=== PATIENT | female | born 1945 | race African-American/Black ===

== ENCOUNTER 2019-11-05 08:48 | Inpatient (IN) | payer MEDICARE, MEDICAID ==
[~2019-11-05] VITALS: Ht 162.6 cm; Wt 60.9 kg
[2019-11-05 10:21] LABS: BASOPHILS % 0.9 % (0.0-2.0); HEMATOCRIT. 33.3 % (36.0-48.0); HEMOGLOBIN. 10.9 g/dL (12.0-16.0); LYMPHOCYTES % 12.5 % (20.0-50.0); MEAN CORPUSCULAR HEMOGLOBIN 28.4 pg (28.0-32.0); MEAN CORPUSCULAR VOLUME 86.7 fL (81.0-99.0); MEAN PLATELET VOLUME 7.9 fl (7.4-10.4); MONOCYTES % 3.5 % (2.0-8.0); NEUTROPHILS % 83.1 % (40.0-76.0); PLATELET 274 x1000/uL (130-400); RED BLOOD CELL COUNT 3.84 mill/uL (4.2-5.4); RED CELL DISTRIBUTION WIDTH 16.3 % (11.6-14.6)
[2019-11-05 10:29] LABS: CHLORIDE 108 mEq/L (98-107)
[2019-11-05] MEDS ORDERED: PIPERACILLIN/TAZ 3.375G PREMIX 50 ML IV ONE (10:30)
[2019-11-05] MEDS ORDERED: VANCOMYCIN 1 G PREMIX 200 ML IV ONE (10:30)
[2019-11-05 10:38] LABS: CLARITY URINE CLOUDY (CLEAR); COLOR URINE YELLOW (YELLOW); KETONES URINE NEGATIVE (NEGATIVE); LEUKOCYTE ESTERASE URINE NEGATIVE (NEGATIVE); NITRITE URINE NEGATIVE (NEGATIVE); OCCULT BLOOD URINE 1+ (NEGATIVE); PROTEIN URINE 3+ (NEGATIVE)
[2019-11-05 10:54] LABS: BG BASE EXCESS -0.4 mmol/L (-2.0-2.0); BG CARBOXYHEMOGLOBIN 0.1 % (0.5-1.5); BG DEOXYHEMOGLOBIN 2.3 % (0.0-5.0); BG FRACTION INSPIRED OXYGEN 100; BG HCO3 ACT 23.3 mmol/L (22.0-26.0); BG METHEMOGLOBIN 0.1 % (0.0-1.5); BG OXYGEN SATURATION 97.7 % (92.0-98.5); BG OXYHEMOGLOBIN 97.5 % (94.0-97.0); BG PCO2 34.4 mmHg (35.0-45.0); BG PH 7.448 (7.350-7.450); BG PO2 107.5 mmHg (75.0-100.0); BG SAMPLE SITE RIGHT RADIAL; BG TOTAL HEMOGLOBIN 10.2 g/dL (12.0-18.0); BG VENT MODE MASK - NRB
[2019-11-05 11:15] LABS: PROTHROMBIN TIME 10.6 sec (9.6-11.0)
[2019-11-05] MEDS ORDERED: AZITHROMYCIN 500 MG TABLET PO SCH (16:00)
[2019-11-05] MEDS ORDERED: DEXAMETHASONE 10 MG/ML VIAL IV SCH ×2 (16:00)
[2019-11-05] MEDS ORDERED: CEFTRIAXONE 1 G PREMIX 50 ML IV SCH (17:00)
[2019-11-05] MEDS ORDERED: ALBUTEROL 6.7GM HFA INHALER ORI SCH (18:00)
[2019-11-05] MEDS ORDERED: ONDANSETRON HCL 4MG/2ML INJ IV PRN (22:45)
[2019-11-05] MEDS ORDERED: ACETAMINOPHEN 325MG TABLET PO PRN (22:45)
[2019-11-05] MEDS ORDERED: DIPHENHYDRAMINE 50MG/ML VIAL IV PRN (22:45)
[2019-11-05] MEDS ORDERED: GUAIFENESIN 200MG/10ML SUGAR FREE UDC PO PRN (22:45)
[2019-11-05] MEDS ORDERED: CLONIDINE 0.1MG TABLET PO PRN (22:45)
[2019-11-05 23:59] VITALS: BP 129/78
[2019-11-06 04:00] VITALS: BP 122/54
[2019-11-06] MEDS: ALBUTEROL 6.7GM HFA INHALER ORI SCH ×3 (05:02→17:50)
[2019-11-06] MEDS: SODIUM CHLORIDE 0.9% INJ 3ML FLUSH IVF SCH ×3 (05:03→20:35)
[2019-11-06] MEDS ORDERED: DEXAMETHASONE 4MG/ML 1ML VIAL IV SCH ×2 (06:00)
[2019-11-06 07:41] LABS: BASOPHILS % 0.2 % (0.0-2.0); HEMATOCRIT. 31.7 % (36.0-48.0); HEMOGLOBIN. 10.6 g/dL (12.0-16.0); LYMPHOCYTES % 8.3 % (20.0-50.0); MEAN CORPUSCULAR HEMOGLOBIN 28.7 pg (28.0-32.0); MEAN CORPUSCULAR VOLUME 86.1 fL (81.0-99.0); MEAN PLATELET VOLUME 7.9 fl (7.4-10.4); MONOCYTES % 2.3 % (2.0-8.0); NEUTROPHILS % 89.2 % (40.0-76.0); PLATELET 258 x1000/uL (130-400); RED BLOOD CELL COUNT 3.69 mill/uL (4.2-5.4); RED CELL DISTRIBUTION WIDTH 15.8 % (11.6-14.6)
[2019-11-06 08:00] VITALS: BP 158/75
[2019-11-06] MEDS: AZITHROMYCIN 250 MG TABLET PO SCH (09:23)
[2019-11-06] MEDS ORDERED: DEXAMETHASONE 10 MG/ML VIAL IV NR (11:30)
[2019-11-06 12:00] VITALS: BP 137/70
[2019-11-06] MEDS: ENOXAPARIN 60MG/0.6ML SYR SUBCUT SCH (12:21)
[2019-11-06] MEDS ORDERED: REMDESIVIR 200 MG in SODIUM CHLORIDE 0.9% 250 ML IV ONE (13:00)
[2019-11-06 16:00] VITALS: BP 103/69
[2019-11-06] MEDS: CEFTRIAXONE 1 G PREMIX 50 ML IV SCH (17:49)
[2019-11-06 20:00] VITALS: BP 138/44
[2019-11-07] VITALS: BP 135/57
[2019-11-07] MEDS: ALBUTEROL 6.7GM HFA INHALER ORI SCH ×5 (00:10→23:21)
[2019-11-07 04:00] VITALS: BP 129/56
[2019-11-07] MEDS: SODIUM CHLORIDE 0.9% INJ 3ML FLUSH IVF SCH ×3 (05:07→21:39)
[2019-11-07 07:41] LABS: CHLORIDE 108 mEq/L (98-107)
[2019-11-07 08:00] VITALS: BP 111/50
[2019-11-07] MEDS: AZITHROMYCIN 250 MG TABLET PO SCH (08:59)
[2019-11-07] MEDS: DEXAMETHASONE 10 MG/ML VIAL IV SCH (09:00)
[2019-11-07 12:00] VITALS: BP 104/50
[2019-11-07] MEDS: ENOXAPARIN 60MG/0.6ML SYR SUBCUT SCH (12:42)
[2019-11-07] MEDS: REMDESIVIR 100 MG in SODIUM CHLORIDE 0.9% 250 ML IV SCH (12:42)
[2019-11-07 16:00] VITALS: BP 112/71
[2019-11-07] MEDS: DEXT 5%/0.45% NACL 1000ML 1,000 ML IV SCH (16:32)
[2019-11-07] MEDS: CEFTRIAXONE 1 G PREMIX 50 ML IV SCH (16:32)
[2019-11-07 20:00] VITALS: BP 149/85
[2019-11-08] VITALS: BP 164/82
[2019-11-08 04:00] VITALS: BP 125/47
[2019-11-08] MEDS: SODIUM CHLORIDE 0.9% INJ 3ML FLUSH IVF SCH ×3 (05:29→22:44)
[2019-11-08] MEDS: ALBUTEROL 6.7GM HFA INHALER ORI SCH ×3 (05:29→17:01)
[2019-11-08 06:30] LABS: BASOPHILS % 0.9 % (0.0-2.0); HEMATOCRIT. 31.2 % (36.0-48.0); HEMOGLOBIN. 10.1 g/dL (12.0-16.0); LYMPHOCYTES % 10.1 % (20.0-50.0); MEAN CORPUSCULAR HEMOGLOBIN 28.1 pg (28.0-32.0); MEAN CORPUSCULAR VOLUME 86.7 fL (81.0-99.0); MONOCYTES % 4.8 % (2.0-8.0); NEUTROPHILS % 84.2 % (40.0-76.0); PLATELET 263 x1000/uL (130-400); RED BLOOD CELL COUNT 3.59 mill/uL (4.2-5.4); RED CELL DISTRIBUTION WIDTH 16.2 % (11.6-14.6)
[2019-11-08 06:56] LABS: CHLORIDE 111 mEq/L (98-107)
[2019-11-08 08:00] VITALS: BP 134/54
[2019-11-08] MEDS: AZITHROMYCIN 250 MG TABLET PO SCH (08:07)
[2019-11-08] MEDS: DEXAMETHASONE 10 MG/ML VIAL IV SCH (08:07)
[2019-11-08] MEDS: ACETAMINOPHEN 325MG TABLET PO PRN (08:08)
[2019-11-08 12:00] VITALS: BP 126/67
[2019-11-08] MEDS: DEXT 5%/0.45% NACL 1000ML 1,000 ML IV SCH (12:01)
[2019-11-08] MEDS: ENOXAPARIN 60MG/0.6ML SYR SUBCUT SCH (12:03)
[2019-11-08] MEDS: REMDESIVIR 100 MG in SODIUM CHLORIDE 0.9% 250 ML IV SCH (12:07)
[2019-11-08 16:00] VITALS: BP 128/74
[2019-11-08] MEDS: CEFTRIAXONE 1 G PREMIX 50 ML IV SCH (17:01)
[2019-11-08 20:49] VITALS: BP 143/68
[2019-11-09 00:25] VITALS: BP 145/54
[2019-11-09] MEDS: ALBUTEROL 6.7GM HFA INHALER ORI SCH ×4 (00:38→17:11)
[2019-11-09 04:00] VITALS: BP 123/73
[2019-11-09] MEDS: SODIUM CHLORIDE 0.9% INJ 3ML FLUSH IVF SCH ×3 (06:00→21:12)
[2019-11-09] MEDS: DEXT 5%/0.45% NACL 1000ML 1,000 ML IV SCH (06:45)
[2019-11-09 08:00] VITALS: BP 121/47
[2019-11-09 08:11] LABS: CHLORIDE 112 mEq/L (98-107)
[2019-11-09] MEDS: DEXAMETHASONE 10 MG/ML VIAL IV SCH (08:33)
[2019-11-09] MEDS: AZITHROMYCIN 250 MG TABLET PO SCH (08:58)
[2019-11-09] MEDS ORDERED: LIDOCAINE HCL 1% 20ML VIAL (Pyxis) INJ ONE (09:23)
[2019-11-09] MEDS: ENOXAPARIN 60MG/0.6ML SYR SUBCUT SCH (11:36)
[2019-11-09] MEDS: REMDESIVIR 100 MG in SODIUM CHLORIDE 0.9% 250 ML IV SCH ×2 (13:00→13:44)
[2019-11-09] MEDS: ACETAMINOPHEN 325MG TABLET PO PRN (13:43)
[2019-11-09 16:00] VITALS: BP 122/68
[2019-11-09] MEDS: CEFTRIAXONE 1 G PREMIX 50 ML IV SCH (16:19)
[2019-11-09 20:00] VITALS: BP 141/54
[2019-11-10] VITALS: BP 156/60
[2019-11-10] MEDS: ALBUTEROL 6.7GM HFA INHALER ORI SCH ×4 (00:07→17:00)
[2019-11-10 04:00] VITALS: BP 119/56
[2019-11-10] MEDS: SODIUM CHLORIDE 0.9% INJ 3ML FLUSH IVF SCH ×3 (05:02→21:07)
[2019-11-10] MEDS: DEXT 5%/0.45% NACL 1000ML 1,000 ML IV SCH (05:04)
[2019-11-10 07:34] LABS: CHLORIDE 112 mEq/L (98-107)
[2019-11-10 08:00] VITALS: BP 139/59
[2019-11-10] MEDS: DEXAMETHASONE 10 MG/ML VIAL IV SCH (08:57)
[2019-11-10] MEDS: ACETAMINOPHEN 325MG TABLET PO PRN (10:50)
[2019-11-10 12:00] VITALS: BP 136/73
[2019-11-10] MEDS: REMDESIVIR 100 MG in SODIUM CHLORIDE 0.9% 250 ML IV SCH (13:18)
[2019-11-10] MEDS: ENOXAPARIN 60MG/0.6ML SYR SUBCUT SCH (13:19)
[2019-11-10 13:28] LABS: BG CARBOXYHEMOGLOBIN 0.3 % (0.5-1.5); BG DEOXYHEMOGLOBIN 2.2 % (0.0-5.0); BG FRACTION INSPIRED OXYGEN 40; BG HCO3 ACT 22.3 mmol/L (22.0-26.0); BG METHEMOGLOBIN 0.1 % (0.0-1.5); BG OXYGEN SATURATION 97.8 % (92.0-98.5); BG OXYHEMOGLOBIN 97.4 % (94.0-97.0); BG PH 7.409 (7.350-7.450); BG PO2 105.6 mmHg (75.0-100.0); BG SAMPLE SITE RIGHT RADIAL; BG TOTAL HEMOGLOBIN 10.8 g/dL (12.0-18.0); BG VENT MODE NASAL CANNULA
[2019-11-10 16:00] VITALS: BP 148/67
[2019-11-10] MEDS: CEFTRIAXONE 1 G PREMIX 50 ML IV SCH (16:59)
[2019-11-10 21:36] VITALS: BP 160/68
[2019-11-11] VITALS: BP 131/57
[2019-11-11] MEDS: ALBUTEROL 6.7GM HFA INHALER ORI SCH ×4 (00:11→17:03)
[2019-11-11] MEDS: DEXT 5%/0.45% NACL 1000ML 1,000 ML IV SCH ×2 (00:12→21:30)
[2019-11-11 04:00] VITALS: BP 157/58
[2019-11-11] MEDS: SODIUM CHLORIDE 0.9% INJ 3ML FLUSH IVF SCH ×3 (05:08→21:31)
[2019-11-11 06:52] LABS: CHLORIDE 113 mEq/L (98-107)
[2019-11-11 08:00] VITALS: BP 149/69
[2019-11-11] MEDS: DEXAMETHASONE 10 MG/ML VIAL IV SCH (08:31)
[2019-11-11 12:00] VITALS: BP 160/67
[2019-11-11] MEDS: ENOXAPARIN 60MG/0.6ML SYR SUBCUT SCH (12:30)
[2019-11-11 16:00] VITALS: BP 139/60
[2019-11-11] MEDS: CEFTRIAXONE 1 G PREMIX 50 ML IV SCH (17:02)
[2019-11-11 20:00] VITALS: BP 138/47
[2019-11-12] VITALS (10 sets, daily range): BP systolic 120–159; BP diastolic 49–77
[2019-11-12] MEDS: ALBUTEROL 6.7GM HFA INHALER ORI SCH ×4 (04:16→17:51)
[2019-11-12] MEDS: SODIUM CHLORIDE 0.9% INJ 3ML FLUSH IVF SCH ×2 (05:38→17:52)
[2019-11-12] MEDS: ENOXAPARIN 60MG/0.6ML SYR SUBCUT SCH (09:23)
[2019-11-12] MEDS: DEXAMETHASONE 10 MG/ML VIAL IV SCH (10:19)
[2019-11-12] MEDS: DEXT 5%/0.45% NACL 1000ML 1,000 ML IV SCH (17:50)
[2019-11-13] VITALS: BP 172/77
[2019-11-13] MEDS: DEXT 5%/0.45% NACL 1000ML 1,000 ML IV SCH (00:38)
[2019-11-13 04:00] VITALS: BP 154/70
[2019-11-13] MEDS: ALBUTEROL 6.7GM HFA INHALER ORI SCH ×4 (06:00→23:02)
[2019-11-13] MEDS: SODIUM CHLORIDE 0.9% INJ 3ML FLUSH IVF SCH ×3 (06:00→21:00)
[2019-11-13 08:00] VITALS: BP 141/62
[2019-11-13] MEDS: ENOXAPARIN 60MG/0.6ML SYR SUBCUT SCH (09:13)
[2019-11-13] MEDS: DEXAMETHASONE 4MG TABLET PO SCH (09:13)
[2019-11-13 10:33] LABS: BG BASE EXCESS 0.5 mmol/L (-2.0-2.0); BG CARBOXYHEMOGLOBIN 0.3 % (0.5-1.5); BG DEOXYHEMOGLOBIN 13.3 % (0.0-5.0); BG FRACTION INSPIRED OXYGEN 100; BG METHEMOGLOBIN 0.1 % (0.0-1.5); BG OXYGEN SATURATION 86.6 % (92.0-98.5); BG OXYHEMOGLOBIN 86.3 % (94.0-97.0); BG PCO2 45.1 mmHg (35.0-45.0); BG PH 7.378 (7.350-7.450); BG PO2 52.8 mmHg (75.0-100.0); BG SAMPLE SITE RIGHT BRACHIAL; BG VENT MODE MASK - NRB
[2019-11-13 12:00] VITALS: BP 166/73
[2019-11-13 16:00] VITALS: BP 122/53
[2019-11-13 20:00] VITALS: BP 157/61
[2019-11-14] VITALS: BP 148/70
[2019-11-14 04:00] VITALS: BP 158/74
[2019-11-14] MEDS: DEXT 5%/0.45% NACL 1000ML 1,000 ML IV SCH (06:05)
[2019-11-14] MEDS: ALBUTEROL 6.7GM HFA INHALER ORI SCH ×3 (06:16→17:26)
[2019-11-14] MEDS: SODIUM CHLORIDE 0.9% INJ 3ML FLUSH IVF SCH ×3 (06:16→20:25)
[2019-11-14 06:45] LABS: CHLORIDE 112 mEq/L (98-107)
[2019-11-14 06:49] LABS: HEMATOCRIT. 31.7 % (36.0-48.0); HEMOGLOBIN. 10.5 g/dL (12.0-16.0); MEAN CORPUSCULAR HEMOGLOBIN 28.4 pg (28.0-32.0); MEAN CORPUSCULAR VOLUME 85.4 fL (81.0-99.0); MEAN PLATELET VOLUME 8.7 fl (7.4-10.4); PLATELET 164 x1000/uL (130-400); RED BLOOD CELL COUNT 3.71 mill/uL (4.2-5.4)
[2019-11-14 06:55] LABS: PHOSPHORUS 3.1 mg/dL (2.5-4.9)
[2019-11-14 08:00] VITALS: BP 136/53
[2019-11-14] MEDS: DEXAMETHASONE 4MG TABLET PO SCH (09:00)
[2019-11-14] MEDS: ENOXAPARIN 60MG/0.6ML SYR SUBCUT SCH ×2 (09:01→20:25)
[2019-11-14 12:00] VITALS: BP 142/50
[2019-11-14 12:58] LABS: PLATELET ESTIMATE NORMAL
[2019-11-14 16:00] VITALS: BP 140/64
[2019-11-14] MEDS: CEFEPIME 1,000 MG in DEXTROSE 5% WATER 50 ML IV SCH (17:25)
[2019-11-14] MEDS ORDERED: VANCOMYCIN 1250MG in DEXTROSE 5% WATER 250ML IV SCH (19:00)
[2019-11-14 20:00] VITALS: BP 142/57
[2019-11-14] MEDS: METRONIDAZOLE 500MG TABLET PO SCH (20:25)
[2019-11-15] VITALS: BP 126/74
[2019-11-15] MEDS: ALBUTEROL 6.7GM HFA INHALER ORI SCH ×4 (01:39→17:31)
[2019-11-15 04:00] VITALS: BP 164/64
[2019-11-15] MEDS: CEFEPIME 1,000 MG in DEXTROSE 5% WATER 50 ML IV SCH ×2 (06:12→17:30)
[2019-11-15] MEDS: SODIUM CHLORIDE 0.9% INJ 3ML FLUSH IVF SCH ×3 (06:15→21:24)
[2019-11-15 08:33] LABS: BG BASE EXCESS -8.5 mmol/L (-2.0-2.0); BG CARBOXYHEMOGLOBIN 0.4 % (0.5-1.5); BG DEOXYHEMOGLOBIN 3.5 % (0.0-5.0); BG HCO3 ACT 18.8 mmol/L (22.0-26.0); BG METHEMOGLOBIN 0.2 % (0.0-1.5); BG OXYGEN SATURATION 96.5 % (92.0-98.5); BG OXYHEMOGLOBIN 95.9 % (94.0-97.0); BG PCO2 46.1 mmHg (35.0-45.0); BG PH 7.229 (7.350-7.450); BG PO2 102.7 mmHg (75.0-100.0); BG SAMPLE SITE RIGHT BRACHIAL; BG TOTAL HEMOGLOBIN 11.7 g/dL (12.0-18.0); BG VENT MODE MASK - NRB
[2019-11-15 08:45] VITALS: BP 137/74
[2019-11-15] MEDS ORDERED: SODIUM BICARBONATE 8.4% 1 MEQ/ML 50ML SYR IV SCH (09:00)
[2019-11-15] MEDS: METRONIDAZOLE 500MG TABLET PO SCH ×2 (09:05→21:24)
[2019-11-15] MEDS: DEXAMETHASONE 4MG TABLET PO SCH (09:05)
[2019-11-15] MEDS: ENOXAPARIN 60MG/0.6ML SYR SUBCUT SCH (09:07)
[2019-11-15 10:05] LABS: BG BASE EXCESS 1.4 mmol/L (-2.0-2.0); BG CARBOXYHEMOGLOBIN 0.1 % (0.5-1.5); BG DEOXYHEMOGLOBIN 3.7 % (0.0-5.0); BG FRACTION INSPIRED OXYGEN 100; BG HCO3 ACT 27.1 mmol/L (22.0-26.0); BG METHEMOGLOBIN 0.3 % (0.0-1.5); BG OXYGEN SATURATION 96.3 % (92.0-98.5); BG OXYHEMOGLOBIN 95.9 % (94.0-97.0); BG PCO2 47.5 mmHg (35.0-45.0); BG PH 7.374 (7.350-7.450); BG PO2 89.4 mmHg (75.0-100.0); BG SAMPLE SITE RIGHT BRACHIAL; BG TOTAL HEMOGLOBIN 11.2 g/dL (12.0-18.0); BG VENT MODE MASK - NRB
[2019-11-15 10:28] LABS: HEMATOCRIT. 32.6 % (36.0-48.0); HEMOGLOBIN. 10.5 g/dL (12.0-16.0); MEAN CORPUSCULAR HEMOGLOBIN 27.7 pg (28.0-32.0); MEAN CORPUSCULAR VOLUME 86.3 fL (81.0-99.0); MEAN PLATELET VOLUME 8.8 fl (7.4-10.4); PLATELET 176 x1000/uL (130-400); RED BLOOD CELL COUNT 3.78 mill/uL (4.2-5.4); RED CELL DISTRIBUTION WIDTH 16.9 % (11.6-14.6)
[2019-11-15 10:33] LABS: CHLORIDE 110 mEq/L (98-107)
[2019-11-15 12:00] VITALS: BP 125/71
[2019-11-15] MEDS ORDERED: VANCOMYCIN 1 G PREMIX 200 ML IV SCH ×2 (12:00→20:00)
[2019-11-15 13:22] LABS: PLATELET ESTIMATE NORMAL
[2019-11-15 16:00] VITALS: BP 132/55
[2019-11-15 20:00] VITALS: BP 145/64
[2019-11-16] VITALS: BP 139/60
[2019-11-16] MEDS: ALBUTEROL 6.7GM HFA INHALER ORI SCH ×4 (01:23→17:43)
[2019-11-16 04:00] VITALS: BP 139/82
[2019-11-16] MEDS: CEFEPIME 1,000 MG in DEXTROSE 5% WATER 50 ML IV SCH ×2 (06:02→17:12)
[2019-11-16] MEDS: SODIUM CHLORIDE 0.9% INJ 3ML FLUSH IVF SCH ×3 (06:02→21:37)
[2019-11-16 07:18] LABS: HEMATOCRIT. 34.6 % (36.0-48.0); HEMOGLOBIN. 11.1 g/dL (12.0-16.0); MEAN CORPUSCULAR HEMOGLOBIN 27.9 pg (28.0-32.0); MEAN CORPUSCULAR VOLUME 87.2 fL (81.0-99.0); MEAN PLATELET VOLUME 8.7 fl (7.4-10.4); PLATELET 160 x1000/uL (130-400); RED BLOOD CELL COUNT 3.97 mill/uL (4.2-5.4); RED CELL DISTRIBUTION WIDTH 16.6 % (11.6-14.6)
[2019-11-16 08:00] VITALS: BP 137/68
[2019-11-16] MEDS: DEXAMETHASONE 4MG TABLET PO SCH (08:23)
[2019-11-16] MEDS: METRONIDAZOLE 500MG TABLET PO SCH ×3 (08:23→21:37)
[2019-11-16] MEDS: ENOXAPARIN 60MG/0.6ML SYR SUBCUT SCH (08:23)
[2019-11-16 11:03] LABS: BG BASE EXCESS 6.9 mmol/L (-2.0-2.0); BG CARBOXYHEMOGLOBIN 0.3 % (0.5-1.5); BG DEOXYHEMOGLOBIN 6.9 % (0.0-5.0); BG FRACTION INSPIRED OXYGEN 100; BG HCO3 ACT 33.4 mmol/L (22.0-26.0); BG METHEMOGLOBIN 0.3 % (0.0-1.5); BG OXYGEN SATURATION 93.1 % (92.0-98.5); BG OXYHEMOGLOBIN 92.5 % (94.0-97.0); BG PCO2 56.9 mmHg (35.0-45.0); BG PH 7.387 (7.350-7.450); BG SAMPLE SITE RIGHT RADIAL; BG TOTAL HEMOGLOBIN 11.8 g/dL (12.0-18.0); BG VENT MODE MASK - NRB
[2019-11-16] MEDS: ACETAMINOPHEN 325MG TABLET PO PRN (11:17)
[2019-11-16 12:00] VITALS: BP 143/53
[2019-11-16 13:22] LABS: PLATELET ESTIMATE NORMAL
[2019-11-16 16:00] VITALS: BP 140/66
[2019-11-16] MEDS: VANCOMYCIN 750 MG PREMIX 150 ML IV SCH (17:01)
[2019-11-16 20:00] VITALS: BP 131/53
[2019-11-17] VITALS: BP 157/88
[2019-11-17 04:00] VITALS: BP 130/60
[2019-11-17] MEDS: SODIUM CHLORIDE 0.9% INJ 3ML FLUSH IVF SCH ×3 (05:11→21:54)
[2019-11-17] MEDS: CEFEPIME 1,000 MG in DEXTROSE 5% WATER 50 ML IV SCH ×2 (05:11→17:18)
[2019-11-17] MEDS: ALBUTEROL 6.7GM HFA INHALER ORI SCH ×4 (06:00→17:19)
[2019-11-17 07:51] LABS: BASOPHILS % 0.2 % (0.0-2.0); EOSINOPHILS % 0.6 % (0.0-5.0); HEMATOCRIT. 34.2 % (36.0-48.0); HEMOGLOBIN. 11.1 g/dL (12.0-16.0); MEAN CORPUSCULAR HEMOGLOBIN 28.1 pg (28.0-32.0); MEAN CORPUSCULAR VOLUME 86.6 fL (81.0-99.0); MONOCYTES % 2.9 % (2.0-8.0); NEUTROPHILS % 76.3 % (40.0-76.0); PLATELET 169 x1000/uL (130-400); RED BLOOD CELL COUNT 3.95 mill/uL (4.2-5.4); RED CELL DISTRIBUTION WIDTH 16.5 % (11.6-14.6)
[2019-11-17 08:02] VITALS: BP 134/75
[2019-11-17 08:32] LABS: BG BASE EXCESS 10.5 mmol/L (-2.0-2.0); BG CARBOXYHEMOGLOBIN 0.1 % (0.5-1.5); BG DEOXYHEMOGLOBIN 6.2 % (0.0-5.0); BG FRACTION INSPIRED OXYGEN 99.9; BG HCO3 ACT 37.8 mmol/L (22.0-26.0); BG METHEMOGLOBIN 0.1 % (0.0-1.5); BG OXYGEN SATURATION 93.8 % (92.0-98.5); BG OXYHEMOGLOBIN 93.6 % (94.0-97.0); BG PCO2 64.9 mmHg (35.0-45.0); BG PH 7.383 (7.350-7.450); BG PO2 70.1 mmHg (75.0-100.0); BG SAMPLE SITE RIGHT BRACHIAL; BG TOTAL HEMOGLOBIN 11.7 g/dL (12.0-18.0); BG VENT MODE MASK - NRB
[2019-11-17] MEDS: ENOXAPARIN 60MG/0.6ML SYR SUBCUT SCH (08:56)
[2019-11-17] MEDS: METRONIDAZOLE 500MG TABLET PO SCH ×3 (08:56→21:54)
[2019-11-17] MEDS: DEXAMETHASONE 4MG TABLET PO SCH (08:56)
[2019-11-17] MEDS: VANCOMYCIN 750 MG PREMIX 150 ML IV SCH (08:57)
[2019-11-17 12:15] VITALS: BP 125/71
[2019-11-17 16:00] VITALS: BP 120/60
[2019-11-17 20:00] VITALS: BP 153/64
[2019-11-18] VITALS: BP 120/57
[2019-11-18 04:00] VITALS: BP 121/60
[2019-11-18] MEDS: CEFEPIME 1,000 MG in DEXTROSE 5% WATER 50 ML IV SCH ×2 (05:54→17:36)
[2019-11-18] MEDS: SODIUM CHLORIDE 0.9% INJ 3ML FLUSH IVF SCH ×3 (05:54→22:40)
[2019-11-18] MEDS: ALBUTEROL 6.7GM HFA INHALER ORI SCH ×5 (06:51→23:58)
[2019-11-18 08:00] VITALS: BP 127/55
[2019-11-18] MEDS: METRONIDAZOLE 500MG TABLET PO SCH ×2 (08:04→20:37)
[2019-11-18] MEDS: ENOXAPARIN 60MG/0.6ML SYR SUBCUT SCH (08:04)
[2019-11-18] MEDS: DEXAMETHASONE 4MG TABLET PO SCH (08:04)
[2019-11-18 12:00] VITALS: BP 155/55
[2019-11-18 13:01] LABS: BG BASE EXCESS 5.3 mmol/L (-2.0-2.0); BG CARBOXYHEMOGLOBIN 0.1 % (0.5-1.5); BG DEOXYHEMOGLOBIN 1.1 % (0.0-5.0); BG FRACTION INSPIRED OXYGEN 99.9; BG HCO3 ACT 33.9 mmol/L (22.0-26.0); BG METHEMOGLOBIN 0.4 % (0.0-1.5); BG OXYGEN SATURATION 98.9 % (92.0-98.5); BG OXYHEMOGLOBIN 98.4 % (94.0-97.0); BG PCO2 73.9 mmHg (35.0-45.0); BG PO2 166.6 mmHg (75.0-100.0); BG SAMPLE SITE RIGHT BRACHIAL; BG TOTAL HEMOGLOBIN 11.2 g/dL (12.0-18.0); BG VENT MODE MASK - NRB
[2019-11-18 16:00] VITALS: BP 105/51
[2019-11-18 20:00] VITALS: BP 101/53
[2019-11-19] VITALS: BP 142/50
[2019-11-19 04:00] VITALS: BP 130/52
[2019-11-19] MEDS: CEFEPIME 1,000 MG in DEXTROSE 5% WATER 50 ML IV SCH ×2 (06:13→18:00)
[2019-11-19] MEDS: ALBUTEROL 6.7GM HFA INHALER ORI SCH ×3 (06:13→18:13)
[2019-11-19] MEDS: SODIUM CHLORIDE 0.9% INJ 3ML FLUSH IVF SCH ×2 (06:13→22:00)
[2019-11-19 06:22] LABS: HEMATOCRIT. 33.3 % (36.0-48.0); HEMOGLOBIN. 10.4 g/dL (12.0-16.0); MEAN CORPUSCULAR HEMOGLOBIN 28.2 pg (28.0-32.0); MEAN CORPUSCULAR VOLUME 89.9 fL (81.0-99.0); MEAN PLATELET VOLUME 9.6 fl (7.4-10.4); PLATELET 181 x1000/uL (130-400)
[2019-11-19 08:00] VITALS: BP 92/41
[2019-11-19] MEDS ORDERED: SODIUM POLYSTYRENE SULFONATE 15 G/60 ML BOT PO SCH (08:00)
[2019-11-19] MEDS: ENOXAPARIN 60MG/0.6ML SYR SUBCUT SCH (08:14)
[2019-11-19] MEDS: METRONIDAZOLE 500MG TABLET PO SCH ×2 (08:14→22:21)
[2019-11-19] MEDS: DEXAMETHASONE 4MG TABLET PO SCH (08:14)
[2019-11-19] MEDS: DEXT 5%/0.45% NACL 1000ML 1,000 ML IV SCH (08:15)
[2019-11-19] MEDS ORDERED: SODIUM POLYSTYRENE SULFONATE 15 G/60 ML BOT PO NR (10:00)
[2019-11-19 12:00] VITALS: BP 94/48
[2019-11-19 13:08] LABS: PLATELET ESTIMATE NORMAL
[2019-11-19 16:00] VITALS: BP 92/40
[2019-11-19 20:00] VITALS: BP 118/46
[2019-11-20] VITALS: BP 115/49
[2019-11-20] MEDS: ALBUTEROL 6.7GM HFA INHALER ORI SCH ×4 (00:14→17:56)
[2019-11-20] MEDS: DEXT 5%/0.45% NACL 1000ML 1,000 ML IV SCH ×2 (03:27→03:30)
[2019-11-20 04:00] VITALS: BP 102/50
[2019-11-20] MEDS: SODIUM CHLORIDE 0.9% INJ 3ML FLUSH IVF SCH ×3 (05:44→20:41)
[2019-11-20] MEDS: CEFEPIME 1,000 MG in DEXTROSE 5% WATER 50 ML IV SCH ×2 (05:44→17:56)
[2019-11-20 06:28] LABS: BASOPHILS % 0.5 % (0.0-2.0); HEMATOCRIT. 31.6 % (36.0-48.0); HEMOGLOBIN. 9.9 g/dL (12.0-16.0); LYMPHOCYTES % 17.8 % (20.0-50.0); MEAN CORPUSCULAR HEMOGLOBIN 28.1 pg (28.0-32.0); MEAN CORPUSCULAR VOLUME 89.6 fL (81.0-99.0); MEAN PLATELET VOLUME 9.2 fl (7.4-10.4); MONOCYTES % 3.1 % (2.0-8.0); NEUTROPHILS % 78.6 % (40.0-76.0); PLATELET 194 x1000/uL (130-400); RED BLOOD CELL COUNT 3.52 mill/uL (4.2-5.4); RED CELL DISTRIBUTION WIDTH 17.6 % (11.6-14.6)
[2019-11-20 08:00] VITALS: BP 139/45
[2019-11-20] MEDS: ENOXAPARIN 60MG/0.6ML SYR SUBCUT SCH (09:00)
[2019-11-20] MEDS: DEXAMETHASONE 4MG TABLET PO SCH (09:00)
[2019-11-20] MEDS: METRONIDAZOLE 500MG TABLET PO SCH ×2 (09:00→20:41)
[2019-11-20] MEDS: DEXTROSE 5% WATER 1,000 ML IV SCH (12:13)
[2019-11-20] MEDS ORDERED: SODIUM POLYSTYRENE SULFONATE 15 G/60 ML BOT PO NR (13:00)
[2019-11-20 13:13] LABS: CREATINE KINASE 20 IU/L (26-192)
[2019-11-20 16:00] VITALS: BP 139/40
[2019-11-20 20:00] VITALS: BP 113/39
[2019-11-21] VITALS: BP 120/57
[2019-11-21] MEDS: ALBUTEROL 6.7GM HFA INHALER ORI SCH ×5 (00:22→17:19)
[2019-11-21] MEDS: DEXTROSE 5% WATER 1,000 ML IV SCH ×3 (00:22→22:07)
[2019-11-21 04:00] VITALS: BP 133/83
[2019-11-21] MEDS: SODIUM CHLORIDE 0.9% INJ 3ML FLUSH IVF SCH ×3 (06:01→21:27)
[2019-11-21] MEDS: CEFEPIME 1,000 MG in DEXTROSE 5% WATER 50 ML IV SCH ×2 (06:01→18:08)
[2019-11-21] MEDS ORDERED: MORPHINE SULFATE 2 MG/ML CPJ (NOT FOR IM USE) IV PRN (06:15)
[2019-11-21] MEDS ORDERED: LORAZEPAM 2MG/ML CPJ IV PRN (06:15)
[2019-11-21 08:30] VITALS: BP 130/60
[2019-11-21] MEDS: DEXAMETHASONE 4MG TABLET PO SCH (09:22)
[2019-11-21] MEDS: ENOXAPARIN 60MG/0.6ML SYR SUBCUT SCH (09:22)
[2019-11-21] MEDS: METRONIDAZOLE 500MG TABLET PO SCH ×2 (09:22→21:17)
[2019-11-21 12:00] VITALS: BP 134/49
[2019-11-21 17:58] VITALS: BP 129/80
[2019-11-21 20:00] VITALS: BP 123/48
[2019-11-22] VITALS: BP 134/91
[2019-11-22] MEDS: ALBUTEROL 6.7GM HFA INHALER ORI SCH ×5 (03:29→23:55)
[2019-11-22 04:00] VITALS: BP 120/91
[2019-11-22] MEDS: CEFEPIME 1,000 MG in DEXTROSE 5% WATER 50 ML IV SCH ×2 (05:53→17:02)
[2019-11-22] MEDS: SODIUM CHLORIDE 0.9% INJ 3ML FLUSH IVF SCH ×3 (05:53→23:36)
[2019-11-22] MEDS: DEXTROSE 5% WATER 1,000 ML IV SCH ×2 (05:53→15:21)
[2019-11-22] MEDS: METRONIDAZOLE 500MG TABLET PO SCH ×2 (08:26→21:00)
[2019-11-22] MEDS: ENOXAPARIN 60MG/0.6ML SYR SUBCUT SCH (08:26)
[2019-11-22 09:08] VITALS: BP 125/53
[2019-11-22 11:40] VITALS: BP 114/32
[2019-11-22] MEDS: MORPHINE SULFATE 2 MG/ML CPJ (NOT FOR IM USE) IV PRN ×3 (13:47→20:55)
[2019-11-22] MEDS: LORAZEPAM 2MG/ML CPJ IV PRN ×3 (15:20→22:56)
[2019-11-22 16:47] VITALS: BP 105/48
[2019-11-22] MEDS ORDERED: POTASSIUM CHLORIDE 20MEQ TABLET SR PO NR (18:00)
[2019-11-22] MEDS ORDERED: KCL 20MEQ/100ML PREMIX 100 ML IV SCH (19:45)
[2019-11-22 20:00] VITALS: BP 110/40
[2019-11-23] VITALS (7 sets, daily range): BP systolic 78–94; BP diastolic 26–41
[2019-11-23] MEDS: MORPHINE SULFATE 2 MG/ML CPJ (NOT FOR IM USE) IV PRN ×3 (01:00→15:29)
[2019-11-23] MEDS: DEXTROSE 5% WATER 1,000 ML IV SCH ×2 (04:00→12:19)
[2019-11-23] MEDS: LORAZEPAM 2MG/ML CPJ IV PRN ×2 (04:00→13:03)
[2019-11-23] MEDS: CEFEPIME 1,000 MG in DEXTROSE 5% WATER 50 ML IV SCH (05:00)
[2019-11-23] MEDS: SODIUM CHLORIDE 0.9% INJ 3ML FLUSH IVF SCH ×2 (05:00→14:28)
[2019-11-23] MEDS: ALBUTEROL 6.7GM HFA INHALER ORI SCH ×3 (05:31→18:34)
[2019-11-23] MEDS: ENOXAPARIN 60MG/0.6ML SYR SUBCUT SCH (08:54)
[2019-11-23] MEDS: METRONIDAZOLE 500MG TABLET PO SCH (08:54)
[2019-11-23 12:45] LABS: HEMATOCRIT. 28.3 % (36.0-48.0); HEMOGLOBIN. 8.6 g/dL (12.0-16.0); MEAN CORPUSCULAR HEMOGLOBIN 27.8 pg (28.0-32.0); MEAN PLATELET VOLUME 9.3 fl (7.4-10.4); PLATELET 95 x1000/uL (130-400); RED BLOOD CELL COUNT 3.11 mill/uL (4.2-5.4); RED CELL DISTRIBUTION WIDTH 17.1 % (11.6-14.6)
[2019-11-23 13:47] LABS: PLATELET ESTIMATE DECREASED
[2019-11-24] VITALS: BP 70/33
[2019-11-24] MEDS: SODIUM CHLORIDE 0.9% INJ 3ML FLUSH IVF SCH ×2 (01:40→06:01)
[2019-11-24] MEDS: ALBUTEROL 6.7GM HFA INHALER ORI SCH ×2 (01:44→06:01)
[2019-11-24 04:00] VITALS: BP 70/30
[2019-11-24] MEDS: DEXTROSE 5% WATER 1,000 ML IV SCH (05:43)
[2019-11-24 08:30] VITALS: BP 73/33
[2019-11-24] MEDS: ENOXAPARIN 60MG/0.6ML SYR SUBCUT SCH (09:05)
[2019-11-24 11:28] VITALS: BP 41/33
[2019-11-24] MEDS: MORPHINE SULFATE 2 MG/ML CPJ (NOT FOR IM USE) IV PRN (11:28)
== END 2019-11-24 15:22 | disposition expired | DRG 720 ==
LOC: ER 08:48 → ENRESERV 21:23 → 7WST 22:50
PROVIDERS: ADMIT Internal Medicine; ATTEND Internal Medicine
PROC: B54MZZA Ultrasonography of Right Upper Extremity Veins, Guidance (ICD-10-PCS; 2019-11-09)
PROC: B54MZZA Ultrasonography of Right Upper Extremity Veins, Guidance (ICD-10-PCS; 2019-11-09)
PROC: 30233K1 Transfusion of Nonautologous Frozen Plasma into Peripheral Vein, Percutaneous Approach (ICD-10-PCS; principal; 2019-11-12)
PROC: 05HY33Z Insertion of Infusion Device into Upper Vein, Percutaneous Approach (ICD-10-PCS; 2019-11-20)
PROC: 05HY33Z Insertion of Infusion Device into Upper Vein, Percutaneous Approach (ICD-10-PCS; 2019-11-20)
DX: A41.89 Other specified sepsis (principal); U07.1 COVID-19; J96.01 Acute respiratory failure with hypoxia; Z51.5 Encounter for palliative care; E43 Unspecified severe protein-calorie malnutrition; J12.89 Other viral pneumonia; N17.9 Acute kidney failure, unspecified; Z66 Do not resuscitate; F03.90 Unspecified dementia, unspecified severity, without behavioral disturbance, psychotic disturbance, mood disturbance, and anxiety; E87.5 Hyperkalemia; D64.9 Anemia, unspecified; D72.810 Lymphocytopenia; E87.2 Acidosis; E87.0 Hyperosmolality and hypernatremia; I11.9 Hypertensive heart disease without heart failure; N13.9 Obstructive and reflux uropathy, unspecified; Z68.23 Body mass index [BMI] 23.0-23.9, adult
CPT/HCPCS: 36415; 36600; 71045; 76937; 80048; 80053; 80202; 81003; 82375; 82550; 82728; 82805; 82962; 83605; 83615; 83735; 83880; 84100; 84145; 84484; 85025; 85379; 86140; 86850; 86870; 86900; 86927; 93005; 99291; C1725; J0692; J0696; J1100; J1650; J2060; J2270; J2543; J3370; J3480; J3490; J7050; J7060; J7070; J8540; P9017; Q9957; C9803-CS; U0003-CS